=== PATIENT | female | born 1990 | race Caucasian/White ===

== ENCOUNTER 2017-02-09 15:37 | Emergency (ER) | payer SELFPAY ==
[2017-02-09 15:38] VITALS: BMI 21.4
[2017-02-09 16:05] VITALS: BP 125/58; PULSE 74; RESP 18; TEMP 98.1; O2SAT 100
[2017-02-09] MEDS ORDERED: Bacitracin OINT 15GM TOP STA (16:14)
[2017-02-09] MEDS ORDERED: TDAP Vaccine 0.5 mL Syr IM ONE (16:14)
--- NOTE | 2017-02-09 16:42 | ED PDOC ---
HPI: Wound Care - HPI Time Seen by Provider: 02/09/17 16:06 Chief Complaint (Nursing): Bite Chief Complaint (Provider): Animal bite History Per: Patient Exam Limitations: no limitations Additional Complaint(s): Rola Allison, 26 year old female presents to the ED on 02/09/17, after being bitten by 2 dogs on her right and left hips a few hours prior to arrival. The patient states that she was able to get the dog salesman/owner's contact info and was told that the dogs' shots are up to date. 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 Of note, the patient's TDAP is not up to date. Past Medical History Reviewed: Historical Data, Nursing Documentation, Vital Signs Vital Signs: Last Vital Signs Temp 98.1 F 02/09/17 16:01 Pulse 74 02/09/17 16:01 Resp 18 02/09/17 16:01 BP 125/58 L 02/09/17 16:01 Pulse Ox 100 02/09/17 16:01 - Medical History PMH: Asthma - Family History Family History: States: Unknown Family Hx - Home Medications Home Medications: Ambulatory Orders Medication Instructions Recorded Famotidine [Pepcid] 20 mg PO BID #30 tab 07/28/13 Ciprofloxacin/Ciprofloxa HCl 500 mg PO BID #14 tab 08/11/14 [Ciprofloxacin] Naproxen 500 mg PO Q12 #20 tab 09/18/14 Hydrocortisone 1% Cream [Cortizone 1 appl TP BID #1 tube 11/19/14 1% Cream] Ibuprofen 600 mg PO Q6H PRN #15 tab 11/19/14 Ondansetron [Zofran] 4 mg PO Q8H #10 tab 11/14/15 Metronidazole [Flagyl] 1 tab PO BID #14 tab 12/13/15 Fluconazole [Diflucan] 150 mg PO DAILY #1 tablet 12/23/15 Albuterol HFA [Ventolin HFA 90 1 - 2 puff IH Q4 PRN #1 inhaler 09/29/16 mcg/actuation (8 g)] Ibuprofen [Motrin Tab] 600 mg PO Q6 PRN #15 tab 09/29/16 Oseltamivir [Tamiflu] 75 mg PO BID #10 cap 09/29/16 Amoxicillin/Clavulanate [Augmentin 1 tab PO BID #20 tab 02/09/17 500 MG-125 MG] - Allergies Allergies/Adverse Reactions: Allergies Allergy/AdvReac Type Severity Reaction Status Date / Time No Known Allergies Allergy Verified 09/29/16 08:15 Review of Systems Musculoskeletal: Positive for: Other (bitten by 2 dogs on her right/left hips) Physical Exam - Reviewed Nursing Documentation Reviewed: Yes Vital Signs Reviewed: Yes - Physical Exam Appears: Positive for: Well, Non-toxic, No Acute Distress Head Exam: Positive for: ATRAUMATIC, NORMOCEPHALIC Skin: Positive for: Normal Color, Warm, Dry Eye Exam: Positive for: Normal appearance ENT: Positive for: Normal ENT Inspection Neck: Positive for: Normal Cardiovascular/Chest: Positive for: Regular Rate, Rhythm, Chest Non Tender Respiratory: Positive for: Normal Breath Sounds. Negative for: Respiratory Distress Gastrointestinal/Abdominal: Positive for: Normal Exam, Soft. Negative for: Tenderness Back: Positive for: Normal Inspection Extremity: Positive for: Deformity (superficial puncture wounds noted to bilateral hips). Negative for: Other (No active bleeding; no laceration) Neurologic/Psych: Positive for: Alert, Oriented (x3) - ECG O2 Sat by Pulse Oximetry: 100 (RA) Pulse Ox Interpretation: Normal Medical Decision Making Medical Decision Makin:06 Initial Impression: Superficial wounds noted to bilateral hips Initial Plan: * Bacitracin OINT 1 applic TOP STAT * TDAP Vaccine 0.5 ml IM * Reevaluation Scribe Attestation: Documented by Jessenia Bryan, acting as a scribe for Talat Bello PA-C. Provider Scribe Attestation: All medical record entries made by the Scribe were at my direction and personally dictated by me. I have reviewed the chart and agree that the record accurately reflects my personal performance of the history, physical exam, medical decision making, and the department course for this patient. I have also personally directed, reviewed, and agree with the discharge instructions and disposition. Disposition - Clinical Impression Clinical Impression: Dog bite, Blind right eye - Patient ED Disposition Is Patient to be Admitted: No - Disposition [facility]errals[facility] [[facility]] Disposition: Routine/Home Disposition Time: 16:30 Condition: STABLE Additional Instructions: As per patient she has been blind in the right eye since she was 4 years old. Follow up with [facility] in 2 days for further evaluation. Follow up with Dr. Gibson, eye doctor, in 2 days for further evaluation. Prescriptions: Amoxicillin/Clavulanate [Augmentin 500 MG-125 MG] 1 tab PO BID #20 tab Instructions: Animal Bite (ED) Print Language: YI
== END 2017-02-09 16:46 | disposition home or self-care (01) ==
LOC: H.ER 15:37
DX: S71.139A Puncture wound without foreign body, unspecified thigh, initial encounter (principal); W54.0XXA Bitten by dog, initial encounter; Y92.89 Other specified places as the place of occurrence of the external cause; H54.41 Blindness, right eye, normal vision left eye

== ENCOUNTER 2017-08-22 09:17 | Emergency (ER) | payer MEDICAID ==
[2017-08-22 09:21] VITALS: BP 107/69; PULSE 72; RESP 20; TEMP 97.6; O2SAT 99; BMI 23.1
--- NOTE | 2017-08-22 09:57 | ED PDOC ---
HPI: Female Pain Time Seen by Provider: 08/22/17 09:40 Chief Complaint (Nursing): Female Genitourinary Chief Complaint (Provider): vaginal irritation History Per: Patient History/Exam Limitations: no limitations Onset/Duration Of Symptoms: Days (3) Severity: Mild Associated Symptoms: denies: Fever, Chills, Nausea, Vomiting, Back Pain, Chest Pain, Urinary Symptoms Alleviating Factors: None Additional Complaint(s): 26yo female c/o vaginal and perineal irritation after she states she wore new underwear which leaked ink. She denies urinary symptoms, pain with sex or fever. She does note some dark vaginal discharge. Denies history STDs, sexually active with women, last [facility] checkup about a year ago she states. Past Medical History Reviewed: Historical Data, Nursing Documentation, Vital Signs Vital Signs: Last Vital Signs Temp 97.6 F 08/22/17 09:21 Pulse 72 08/22/17 09:21 Resp 20 08/22/17 09:21 BP 107/69 08/22/17 09:21 Pulse Ox 99 08/22/17 09:21 - Medical History PMH: Asthma - Surgical History Surgical History: No Surg Hx - Family History Family History: States: Unknown Family Hx - Home Medications Home Medications: Ambulatory Orders Medication Instructions Recorded Famotidine [Pepcid] 20 mg PO BID #30 tab 07/28/13 Ciprofloxacin/Ciprofloxa HCl 500 mg PO BID #14 tab 08/11/14 [Ciprofloxacin] Naproxen 500 mg PO Q12 #20 tab 09/18/14 Hydrocortisone 1% Cream [Cortizone 1 appl TP BID #1 tube 11/19/14 1% Cream] Ibuprofen 600 mg PO Q6H PRN #15 tab 11/19/14 Ondansetron [Zofran] 4 mg PO Q8H #10 tab 11/14/15 Metronidazole [Flagyl] 1 tab PO BID #14 tab 12/13/15 Fluconazole [Diflucan] 150 mg PO DAILY #1 tablet 12/23/15 Albuterol HFA [Ventolin HFA 90 1 - 2 puff IH Q4 PRN #1 inhaler 09/29/16 mcg/actuation (8 g)] Ibuprofen [Motrin Tab] 600 mg PO Q6 PRN #15 tab 09/29/16 Oseltamivir [Tamiflu] 75 mg PO BID #10 cap 09/29/16 Amoxicillin/Clavulanate [Augmentin 1 tab PO BID #20 tab 02/09/17 500 MG-125 MG] Ciprofloxacin [Cipro] 500 mg PO BID #14 tab 08/22/17 Hydrocortisone 1% Cream [Cortizone 1 appl TP BID #1 tube 08/22/17 1% Cream] - Allergies Allergies/Adverse Reactions: Allergies Allergy/AdvReac Type Severity Reaction Status Date / Time No Known Allergies Allergy Verified 08/22/17 09:29 Review of Systems Constitutional: Negative for: Fever, Chills Gastrointestinal: Negative for: Nausea, Vomiting Genitourinary Female: Positive for: Vaginal Discharge, Rash. Negative for: Dysuria, Frequency, Vaginal Bleeding, Pelvic Pain Physical Exam - Reviewed Nursing Documentation Reviewed: Yes Vital Signs Reviewed: Yes - Physical Exam Appears: Positive for: Well, Non-toxic, No Acute Distress Head Exam: Positive for: ATRAUMATIC, NORMAL INSPECTION, NORMOCEPHALIC Skin: Positive for: Normal Color, Warm, DRY Neck: Positive for: Normal Cardiovascular/Chest: Negative for: Tachycardia Respiratory: Negative for: Respiratory Distress Gastrointestinal/Abdominal: Positive for: Soft. Negative for: Tenderness Pelvic Exam: Positive for: External Exam Normal, Cervicitis (mild). Negative for: Blood, Tender W/Cervical Motion, Tender Adnexa, Tender Uterus, Ulcers Back: Positive for: Normal Inspection Extremity: Positive for: Normal ROM Neurologic/Psych: Positive for: Alert, Oriented. Negative for: Motor/Sensory Deficits - ECG O2 Sat by Pulse Oximetry: 99 Medical Decision Making Medical Decision Making: workup for complaint initiated Preg neg UDip +leuks Pelvic reveals mild cervicitis, otherwise benign appearing Rx cipro for UTI, followup STD panel. Hydrocortisone trial for inguinal area she states itches from underwear. Disposition - Clinical Impression Clinical Impression: Genitourinary Pain, Cervicitis, UTI (urinary tract infection) - Disposition [facility]] Disposition: Routine/Home Disposition Time: 10:30 Condition: STABLE Additional Instructions: Followup for STD testing results. Return to ER for any worse or new symptoms. SEE [facility]ENTATION SPECIALIST DOCTOR FOR FULL TESTING AND PAP SMEAR. Prescriptions: Ciprofloxacin [Cipro] 500 mg PO BID #14 tab Hydrocortisone 1% Cream [Cortizone 1% Cream] 1 appl TP BID #1 tube Instructions: Cervicitis (ED), Urinary Tract Infection in Women (ED)
== END 2017-08-22 10:36 | disposition home or self-care (01) ==
LOC: H.ER 09:17
DX: N72 Inflammatory disease of cervix uteri (principal); N39.0 Urinary tract infection, site not specified; J45.909 Unspecified asthma, uncomplicated

== ENCOUNTER 2018-01-10 13:26 | Emergency (ER) | payer MEDICAID ==
[2018-01-10 13:27] VITALS: BMI 23.1
[2018-01-10 13:46] VITALS: BP 110/76; PULSE 76; RESP 16; TEMP 98; O2SAT 97
--- NOTE | 2018-01-10 14:06 | ED PDOC ---
History of Present Illness History of Present Illness: Rola is a 27 y/o female with no past medical history who presents to the ED complaining of body aches, throat pain, congestion and weakness since yesterday morning. Patient denies sick contacts. PMD: None HPI: Influenza Time Seen by Provider: 01/10/18 14:00 Chief Complaint: Flu-like Symptoms Chief Complaint (Provider): Flu-like Symptoms History Per: Patient Exam Limitations: no limitations Onset/Duration Of Symptoms: Days (x 2) Symptoms include: fever, bodyaches, sore throat, nasal congestion Past Medical History Reviewed: Historical Data, Nursing Documentation, Vital Signs Vital Signs: Last Vital Signs Temp 98.0 F 01/10/18 13:43 Pulse 76 01/10/18 13:43 Resp 16 01/10/18 13:43 BP 110/76 01/10/18 13:43 Pulse Ox 97 01/10/18 13:43 - Medical History PMH: Asthma - Family History Family History: States: Unknown Family Hx - Social History Current smoker - smoking cessation education provided: Yes - Home Medications Home Medications: Ambulatory Orders Medication Instructions Recorded Famotidine [Pepcid] 20 mg PO BID #30 tab 07/28/13 Ciprofloxacin/Ciprofloxa HCl 500 mg PO BID #14 tab 08/11/14 [Ciprofloxacin] Naproxen 500 mg PO Q12 #20 tab 09/18/14 Hydrocortisone 1% Cream [Cortizone 1 appl TP BID #1 tube 11/19/14 1% Cream] Ibuprofen 600 mg PO Q6H PRN #15 tab 11/19/14 Ondansetron [Zofran] 4 mg PO Q8H #10 tab 11/14/15 Metronidazole [Flagyl] 1 tab PO BID #14 tab 12/13/15 Fluconazole [Diflucan] 150 mg PO DAILY #1 tablet 12/23/15 Albuterol HFA [Ventolin HFA 90 1 - 2 puff IH Q4 PRN #1 inhaler 09/29/16 mcg/actuation (8 g)] Ibuprofen [Motrin Tab] 600 mg PO Q6 PRN #15 tab 09/29/16 Oseltamivir [Tamiflu] 75 mg PO BID #10 cap 09/29/16 Amoxicillin/Clavulanate [Augmentin 1 tab PO BID #20 tab 02/09/17 500 MG-125 MG] Ciprofloxacin [Cipro] 500 mg PO BID #14 tab 08/22/17 Hydrocortisone 1% Cream [Cortizone 1 appl TP BID #1 tube 08/22/17 1% Cream] Ibuprofen [Motrin] 600 mg PO Q8 PRN #21 tab 01/10/18 Oseltamivir [Tamiflu] 75 mg PO BID #10 cap 01/10/18 Pseudoephedrine [Sudafed Tab] 60 mg PO Q6 PRN #24 tab 01/10/18 - Allergies Allergies/Adverse Reactions: Allergies Allergy/AdvReac Type Severity Reaction Status Date / Time No Known Allergies Allergy Verified 01/10/18 13:42 Review of Systems ROS Statement: Except As Marked, All Systems Reviewed And Found Negative Constitutional: Positive for: Weakness, Malaise. Negative for: Fever ENT: Positive for: Nose Congestion, Throat Pain Physical Exam - Reviewed Nursing Documentation Reviewed: Yes Vital Signs Reviewed: Yes - Physical Exam Appears: Positive for: Well, Non-toxic, No Acute Distress Skin: Positive for: Normal Color, Warm, Dry ENT: Positive for: Nasal Congestion, Pharyngeal Erythema Respiratory: Positive for: Normal Breath Sounds. Negative for: Wheezing, Respiratory Distress Neurologic/Psych: Positive for: Alert, Oriented Medical Decision Making Medical Decision Making: Time: 14:05 Initial Impression: Flu-like symptoms Initial Plan: --Flu Swab --Rapid Strep Scribe Attestation: Documented by Rogelio Falcon, acting as a scribe for Reji Cooper PA-C Provider Scribe Attestation: All medical record entries made by the Scribe were at my direction and personally dictated by me. I have reviewed the chart and agree that the record accurately reflects my personal performance of the history, physical exam, medical decision making, and the department course for this patient. I have also personally directed, reviewed, and agree with the discharge instructions and disposition. - ECG O2 Sat by Pulse Oximetry: 97 Disposition - Clinical Impression Clinical Impression: Influenza - Patient ED Disposition Is Patient to be Admitted: No - Disposition Referrals: [facility] [Outside] Disposition: Routine/Home Disposition Time: 14:54 Condition: FAIR Prescriptions: Ibuprofen [Motrin] 600 mg PO Q8 PRN #21 tab PRN Reason: Pain, Moderate (4-7) Oseltamivir [Tamiflu] 75 mg PO BID #10 cap Pseudoephedrine [Sudafed Tab] 60 mg PO Q6 PRN #24 tab PRN Reason: Nasal Congestion Instructions: Flu, Adult (DC) Forms: [employer] (Slovak), [facility] ED School/Work Excuse
== END 2018-01-10 15:00 | disposition home or self-care (01) ==
LOC: H.ER 13:26
DX: J11.1 Influenza due to unidentified influenza virus with other respiratory manifestations (principal); J45.909 Unspecified asthma, uncomplicated; F17.200 Nicotine dependence, unspecified, uncomplicated

== ENCOUNTER 2018-01-16 10:56 | Emergency (ER) | payer SELFPAY ==
[2018-01-16 10:56] VITALS: BMI 23.1
[2018-01-16 11:15] VITALS: BP 100/74; PULSE 79; RESP 18; TEMP 97.8; O2SAT 100
--- NOTE | 2018-01-16 12:03 | ED PDOC ---
HPI: Abdomen Time Seen by Provider: 01/16/18 12:02 Chief Complaint (Nursing): GI Problem Chief Complaint (Provider): Vomiting History Per: Patient History/Exam Limitations: no limitations Onset/Duration Of Symptoms: Hrs (this morning) Current Symptoms Are (Timing): Still Present Location Of Pain/Discomfort: Epigastric Associated Symptoms: Nausea, Vomiting, Diarrhea Additional Complaint(s): Rola Allison is a 27 year old female with a past medical history of back pain and asthma, who is presenting to the ER with complaints of nausea and vomiting, with associated abdominal pain onset this morning prior to arrival. Patient states that she began feeling nauseous after she ate this morning and reports episodes of diarrhea; her last bowel movement was this morning. Patient admits to having the flu a few days ago and denies any fevers or headaches. PMD: none provided Past Medical History Reviewed: Historical Data, Nursing Documentation, Vital Signs Vital Signs: Last Vital Signs Temp 97.8 F 01/16/18 11:12 Pulse 79 01/16/18 11:12 Resp 18 01/16/18 11:12 BP 100/74 01/16/18 11:12 Pulse Ox 100 01/16/18 16:06 - Medical History PMH: Asthma - Family History Family History: States: Unknown Family Hx - Social History Current smoker - smoking cessation education provided: Yes (3 cigarettes a day) Alcohol: Social - Home Medications Home Medications: Ambulatory Orders Medication Instructions Recorded Famotidine [Pepcid] 20 mg PO BID #30 tab 07/28/13 Ciprofloxacin/Ciprofloxa HCl 500 mg PO BID #14 tab 08/11/14 [Ciprofloxacin] Naproxen 500 mg PO Q12 #20 tab 09/18/14 Hydrocortisone 1% Cream [Cortizone 1 appl TP BID #1 tube 11/19/14 1% Cream] Ibuprofen 600 mg PO Q6H PRN #15 tab 11/19/14 Ondansetron [Zofran] 4 mg PO Q8H #10 tab 11/14/15 Metronidazole [Flagyl] 1 tab PO BID #14 tab 12/13/15 Fluconazole [Diflucan] 150 mg PO DAILY #1 tablet 12/23/15 Albuterol HFA [Ventolin HFA 90 1 - 2 puff IH Q4 PRN #1 inhaler 09/29/16 mcg/actuation (8 g)] Ibuprofen [Motrin Tab] 600 mg PO Q6 PRN #15 tab 09/29/16 Oseltamivir [Tamiflu] 75 mg PO BID #10 cap 09/29/16 Amoxicillin/Clavulanate [Augmentin 1 tab PO BID #20 tab 02/09/17 500 MG-125 MG] Ciprofloxacin [Cipro] 500 mg PO BID #14 tab 08/22/17 Hydrocortisone 1% Cream [Cortizone 1 appl TP BID #1 tube 08/22/17 1% Cream] Ibuprofen [Motrin] 600 mg PO Q8 PRN #21 tab 01/10/18 Oseltamivir [Tamiflu] 75 mg PO BID #10 cap 01/10/18 Pseudoephedrine [Sudafed Tab] 60 mg PO Q6 PRN #24 tab 01/10/18 - Allergies Allergies/Adverse Reactions: Allergies Allergy/AdvReac Type Severity Reaction Status Date / Time No Known Allergies Allergy Verified 01/16/18 11:12 Review of Systems ROS Statement: Except As Marked, All Systems Reviewed And Found Negative Constitutional: Negative for: Fever Gastrointestinal: Positive for: Nausea, Vomiting, Abdominal Pain, Diarrhea Neurological: Negative for: Headache Physical Exam - Reviewed Nursing Documentation Reviewed: Yes Vital Signs Reviewed: Yes - Physical Exam Appears: Positive for: Non-toxic, No Acute Distress Head Exam: Positive for: ATRAUMATIC, NORMAL INSPECTION, NORMOCEPHALIC Skin: Positive for: Normal Color, Warm, DRY Eye Exam: Positive for: Normal appearance ENT: Positive for: Normal ENT Inspection Neck: Positive for: Normal, Painless ROM Cardiovascular/Chest: Positive for: Regular Rate, Rhythm. Negative for: Gallop , Murmur Respiratory: Positive for: Normal Breath Sounds. Negative for: Respiratory Distress Pulses-Carotid (L): 2+ Pulses-Carotid (R): 2+ Pulses-Radial (L): 2+ Pulses-Radial (R): 2+ Gastrointestinal/Abdominal: Positive for: Bowel Sounds (active), Tenderness ( epigastric, no quadrant tenderness). Negative for: Other (Toney's sign) Extremity: Positive for: Normal ROM. Negative for: Deformity, Swelling Neurologic/Psych: Positive for: Alert, Oriented. Negative for: Motor/Sensory Deficits - Laboratory Results Result Diagrams: 01/16/18 13:30 01/16/18 13:30 - ECG O2 Sat by Pulse Oximetry: 100 (RA) Pulse Ox Interpretation: Normal Medical Decision Making Medical Decision Making: Time: 12:31 Plan: --CT Abd/Pelvis --Amylase --CMP --Drug Screen --Lipase --ED Urine --CBC --Zofran Inj 4 mg IVP --Urinalysis Pt informed staff while awaitig a contrast CT to evaluate her for acute abdomen that "she had things to do" and no longer wanted to stay. The consequences/AMA were explained to the patient and she further informed that she would "take the risk" becuase she feels so much better now. Pt executed an AMA form Scribe Attestation: Documented by Ronda Felix, acting as a scribe for Matthew Meza PA-C Provider Scribe Attestation: All medical record entries made by the Scribe were at my direction and personally dictated by me. I have reviewed the chart and agree that the record accurately reflects my personal performance of the history, physical exam, medical decision making, and the department course for this patient. I have also personally directed, reviewed, and agree with the discharge instructions and disposition. Disposition - Clinical Impression Clinical Impression: Abdominal pain - Patient ED Disposition Is Patient to be Admitted: No Counseled Patient/Family Regarding: Studies Performed - Disposition Disposition: Against Medical Advice Disposition Time: 15:50 Condition: FAIR Forms: [employer] (Romanian)
[2018-01-16 13:39] LABS: BASO % 0.5 % (0.0-2.0); EOS % 0.4 % (0.0-4.0); LYMPH # 0.9 K/uL (1.0-4.3); MEAN CELL VOLUME 81.2 fl (81.0-99.0); MEAN CORPUSCULAR HEMOGLOBIN 26.4 pg (27.0-31.0); MEAN CORPUSCULAR HGB CONC 32.6 g/dL (33.0-37.0); MEAN PLATELET VOLUME 9.2 fl (7.2-11.7); MONO # 0.1 K/uL (0.0-0.8); MONO % 2.8 % (0.0-10.0); NEUT # 4.1 K/uL (1.8-7.0); NEUT % 79.3 % (50.0-75.0); RBC 5.28 Mil/uL (3.80-5.20); WHITE BLOOD COUNT 5.2 K/uL (4.8-10.8)
[2018-01-16] MEDS ORDERED: Iohexol 240 (50 ml) ONE (13:39)
[2018-01-16 13:50] LABS: ALB/GLOB RATIO 1.3 (1.0-2.1); ALBUMIN 4.5 g/dL (3.5-5.0); ALT/SGPT 32 U/L (9-52); AMYLASE 95 U/L (30-110); AST/SGOT 25 U/L (14-36); BLOOD UREA NITROGEN 11 mg/dl (7-17); CALCIUM 9.7 mg/dL (8.4-10.2); GFR AFRICAN-AMERICAN > 60; GFR NON-AFRICAN AMERICAN > 60; LIPASE 113 U/L (23-300)
[2018-01-16 14:37] LABS: SQUAMOUS EPITHIAL 8 /hpf (0-5); URINE BACTERIA RARE (<OCC); URINE BILIRUBIN NEGATIVE (NEGATIVE); URINE BLOOD NEGATIVE (NEGATIVE); URINE CLARITY CLOUDY (Clear); URINE COLOR YELLOW (YELLOW); URINE GLUCOSE (UA) NEG (Normal); URINE LEUKOCYTE ESTERASE NEG Leu/uL (Negative); URINE PROTEIN 30 mg/dL (NEGATIVE); URINE UROBILINOGEN 0.2-1.0 mg/dL (0.2-1.0)
[2018-01-16 14:47] LABS: BARBITURATES, UR NEGATIVE (NEGATIVE); BENZODIAZEPINES, UR NEGATIVE (NEGATIVE); OPIATES, UR NEGATIVE (NEGATIVE); PHENCYCLIDINE, UR NEGATIVE (NEGATIVE)
== END 2018-01-16 16:11 | disposition left against medical advice (07) ==
LOC: H.ER 10:56
DX: R10.9 Unspecified abdominal pain (principal); F17.210 Nicotine dependence, cigarettes, uncomplicated; J45.909 Unspecified asthma, uncomplicated
CPT/HCPCS: 80053; 80324; 80345; 80346; 80349; 80353; 80358; 80361; 81003; 81025; 82150; 83690; 83992; 85025; 96374; 99283; J2405

== ENCOUNTER 2018-02-17 11:38 | Emergency (ER) | payer MEDICAID, SELFPAY ==
[2018-02-17 11:42] VITALS: BMI 24.9
[2018-02-17 11:44] VITALS: BP 112/76; PULSE 76; RESP 16; TEMP 97.5; O2SAT 96
[2018-02-17] MEDS ORDERED: Sodium Chloride 0.9% 1,000 ML IV STA (12:05)
--- NOTE | 2018-02-17 12:08 | ED PDOC ---
HPI: Abdomen Time Seen by Provider: 02/17/18 12:00 Chief Complaint (Nursing): GI Problem History Per: Patient Onset/Duration Of Symptoms: Days (2) Current Symptoms Are (Timing): Still Present Severity: Mild Pain Scale Rating Of: 2 Location Of Pain/Discomfort: Epigastric, LLQ Quality Of Discomfort: Unable To Describe Associated Symptoms: Nausea, Vomiting, Diarrhea Exacerbating Factors: None Alleviating Factors: None Additional Complaint(s): Epigastric and LLQ abd pain assoc with NVD since last night. No fever or blood in stools Past Medical History Vital Signs: Last Vital Signs Temp 97.5 F L 02/17/18 11:43 Pulse 76 02/17/18 11:43 Resp 16 02/17/18 11:43 BP 112/76 02/17/18 11:43 Pulse Ox 96 02/17/18 13:14 - Medical History PMH: Asthma - Family History Family History: States: Unknown Family Hx - Home Medications Home Medications: Ambulatory Orders Medication Instructions Recorded Famotidine [Pepcid] 20 mg PO BID #30 tab 07/28/13 Ciprofloxacin/Ciprofloxa HCl 500 mg PO BID #14 tab 08/11/14 [Ciprofloxacin] Naproxen 500 mg PO Q12 #20 tab 09/18/14 Hydrocortisone 1% Cream [Cortizone 1 appl TP BID #1 tube 11/19/14 1% Cream] Ibuprofen 600 mg PO Q6H PRN #15 tab 11/19/14 Ondansetron [Zofran] 4 mg PO Q8H #10 tab 11/14/15 Metronidazole [Flagyl] 1 tab PO BID #14 tab 12/13/15 Fluconazole [Diflucan] 150 mg PO DAILY #1 tablet 12/23/15 Albuterol HFA [Ventolin HFA 90 1 - 2 puff IH Q4 PRN #1 inhaler 09/29/16 mcg/actuation (8 g)] Ibuprofen [Motrin Tab] 600 mg PO Q6 PRN #15 tab 09/29/16 Oseltamivir [Tamiflu] 75 mg PO BID #10 cap 09/29/16 Amoxicillin/Clavulanate [Augmentin 1 tab PO BID #20 tab 02/09/17 500 MG-125 MG] Ciprofloxacin [Cipro] 500 mg PO BID #14 tab 08/22/17 Hydrocortisone 1% Cream [Cortizone 1 appl TP BID #1 tube 08/22/17 1% Cream] Ibuprofen [Motrin] 600 mg PO Q8 PRN #21 tab 01/10/18 Oseltamivir [Tamiflu] 75 mg PO BID #10 cap 01/10/18 Pseudoephedrine [Sudafed Tab] 60 mg PO Q6 PRN #24 tab 01/10/18 Famotidine [Pepcid] 20 mg PO Q12 #20 tab 02/17/18 Ondansetron [Zofran] 4 mg PO Q8H #10 tab 02/17/18 - Allergies Allergies/Adverse Reactions: Allergies Allergy/AdvReac Type Severity Reaction Status Date / Time No Known Allergies Allergy Verified 01/16/18 11:12 Review of Systems ROS Statement: Except As Marked, All Systems Reviewed And Found Negative Gastrointestinal: Positive for: Nausea, Vomiting, Abdominal Pain, Diarrhea Physical Exam - Reviewed Nursing Documentation Reviewed: Yes Vital Signs Reviewed: Yes - Physical Exam Appears: Positive for: Non-toxic, No Acute Distress Head Exam: Positive for: ATRAUMATIC, NORMAL INSPECTION, NORMOCEPHALIC Skin: Positive for: Normal Color, Warm, DRY Eye Exam: Positive for: EOMI, Normal appearance, PERRL ENT: Positive for: Normal ENT Inspection Neck: Positive for: Normal, Painless ROM Cardiovascular/Chest: Positive for: Regular Rate, Rhythm Respiratory: Positive for: CNT, Normal Breath Sounds Gastrointestinal/Abdominal: Positive for: Soft, Tenderness (epigastric and LLQ abd pain) Back: Positive for: Normal Inspection Extremity: Positive for: Normal ROM Neurologic/Psych: Positive for: Alert, Oriented - Laboratory Results Result Diagrams: 02/17/18 12:20 02/17/18 12:20 - ECG O2 Sat by Pulse Oximetry: 96 Medical Decision Making Medical Decision Makin; APOORVA KAUR Time: 1205 Plan: -- CT Abd & Pelvis IV Contrast -- CMP -- ED Urine -- ED Urine Dipstick -- CBC with differentials -- Sodium Chloride 200 mls/hr Scribe Attestation: Documented by Aya Ghazy, acting as a scribe for Dr. Crow Sanchez MD. Pt does not wish to wait for CT results Provider Scribe Attestation: All medical record entries made by the Scribe were at my direction and personally dictated by me. I have reviewed the chart and agree that the record accurately reflects my personal performance of the history, physical exam, medical decision making, and the department course for this patient. I have also personally directed, reviewed, and agree with the discharge instructions and disposition. Disposition - Clinical Impression Clinical Impression: Gastroenteritis - Patient ED Disposition Is Patient to be Admitted: No Counseled Patient/Family Regarding: Studies Performed, Diagnosis, Need For Followup, Rx Given - Disposition Referrals: [facility] [Outside] Disposition: Routine/Home Disposition Time: 14:42 Condition: FAIR Prescriptions: Famotidine [Pepcid] 20 mg PO Q12 #20 tab Ondansetron [Zofran] 4 mg PO Q8H #10 tab Instructions: Gastritis (DC) Forms: [employer] (Puerto Rican)
[2018-02-17 12:38] LABS: BASO # 0.1 K/uL (0.0-0.2); BASO % 0.8 % (0.0-2.0); EOS % 0.4 % (0.0-4.0); HEMOGLOBIN 13.9 g/dL (12.0-16.0); LYMPH # 1.1 K/uL (1.0-4.3); MEAN CELL VOLUME 79.9 fl (81.0-99.0); MEAN CORPUSCULAR HEMOGLOBIN 26.2 pg (27.0-31.0); MEAN CORPUSCULAR HGB CONC 32.7 g/dL (33.0-37.0); MEAN PLATELET VOLUME 9.3 fl (7.2-11.7); MONO # 0.3 K/uL (0.0-0.8); MONO % 4.2 % (0.0-10.0); NEUT # 6.1 K/uL (1.8-7.0); NEUT % 80.6 % (50.0-75.0); NRBC % 0.2 % (0.0-0.0); RBC 5.3 Mil/uL (3.80-5.20); RED CELL DISTRIBUTION WIDTH 15.2 % (11.5-14.5); WHITE BLOOD COUNT 7.6 K/uL (4.8-10.8)
[2018-02-17 12:50] LABS: ALB/GLOB RATIO 1.3 (1.0-2.1); ALBUMIN 4.5 g/dL (3.5-5.0); ALT/SGPT 34 U/L (9-52); AST/SGOT 26 U/L (14-36); BLOOD UREA NITROGEN 13 mg/dl (7-17); CALCIUM 9.6 mg/dL (8.4-10.2); GFR AFRICAN-AMERICAN > 60; GFR NON-AFRICAN AMERICAN > 60
[2018-02-17] MEDS ORDERED: Iohexol 300 100 ML IJ ONE (13:39)
[2018-02-17] MEDS ORDERED: Sodium Chloride 0.9% 100 ML ONE (13:40)
--- NOTE | 2018-02-17 15:22 | CT ---
PROCEDURE: CT Abdomen and Pelvis with contrast HISTORY: abd pain COMPARISON: None. TECHNIQUE: Contrast dose: Radiation dose: Total exam DLP = mGy-cm. This CT exam was performed using one or more of the following dose reduction techniques: Automated exposure control, adjustment of the mA and/or kV according to patient size, and/or use of iterative reconstruction technique. FINDINGS: LOWER THORAX: Unremarkable. LIVER: Unremarkable. No gross lesion or ductal dilatation. GALLBLADDER AND BILE DUCTS: Unremarkable. PANCREAS: Unremarkable. No gross lesion or ductal dilatation. SPLEEN: Unremarkable. ADRENALS: Unremarkable. No mass. KIDNEYS AND URETERS: Unremarkable. No hydronephrosis. No solid mass. VASCULATURE: Unremarkable. No aortic aneurysm. BOWEL: Unremarkable. No obstruction. No gross mural thickening. APPENDIX: Normal appendix. PERITONEUM: Unremarkable. No free fluid. No free air. LYMPH NODES: Unremarkable. No enlarged lymph nodes. BLADDER: Unremarkable. REPRODUCTIVE: Unremarkable. BONES: No acute fracture. OTHER FINDINGS: None. IMPRESSION: Unremarkable contrast enhanced CT of the abdomen and pelvis.
== END 2018-02-17 14:43 | disposition home or self-care (01) ==
LOC: H.ER 11:38
DX: K52.9 Noninfective gastroenteritis and colitis, unspecified (principal)
CPT/HCPCS: 74177; 80053; 81025; 85025; 96374; 99285; J7040; Q9967

== ENCOUNTER 2019-03-02 21:35 | Emergency (ER) | payer MEDICAID ==
[2019-03-02 21:35] VITALS: BMI 24.9
[2019-03-02 21:43] VITALS: RESP 16
[2019-03-02 22:41] LABS: BASO % 0.8 % (0.0-2.0); EOS # 0.2 K/uL (0.0-0.7); EOS % 4.5 % (0.0-4.0); HEMOGLOBIN 12.3 g/dL (12.0-16.0); LYMPH # 1.5 K/uL (1.0-4.3); LYMPH % 31.2 % (20.0-40.0); MEAN CELL VOLUME 78.8 fl (81.0-99.0); MEAN CORPUSCULAR HEMOGLOBIN 25.4 pg (27.0-31.0); MEAN CORPUSCULAR HGB CONC 32.3 g/dL (33.0-37.0); MEAN PLATELET VOLUME 9.4 fl (7.2-11.7); MONO # 0.3 K/uL (0.0-0.8); MONO % 5.7 % (0.0-10.0); NEUT # 2.7 K/uL (1.8-7.0); NEUT % 57.8 % (50.0-75.0); NRBC % 0.1 % (0.0-0.0); RBC 4.84 Mil/uL (3.80-5.20); RED CELL DISTRIBUTION WIDTH 15.9 % (11.5-14.5); WHITE BLOOD COUNT 4.8 K/uL (4.8-10.8)
[2019-03-02 22:56] LABS: ALB/GLOB RATIO 1.4 (1.0-2.1); ALBUMIN 4.2 g/dL (3.5-5.0); ALT/SGPT 26 U/L (9-52); AST/SGOT 25 U/L (14-36); BLOOD UREA NITROGEN 14 mg/dl (7-17); CALCIUM 8.9 mg/dL (8.4-10.2); GFR NON-AFRICAN AMERICAN > 60
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
[2019-03-03] MEDS ORDERED: Sodium Chloride 0.9% 1,000 ML IV STA (00:54)
[2019-03-03 01:22] VITALS: BP 109/68; PULSE 86; TEMP 98.2
[2019-03-03 01:32] VITALS: O2SAT 97
--- NOTE | 2019-03-03 11:25 | CARD ---
APPROVED REPORT Date of service: 03/02/2019 EKG Measurement Heart [id number] <Conclusion> Normal sinus rhythm Normal ECG
--- NOTE | 2019-03-03 12:29 | CT ---
Date of service: 03/02/2019 PROCEDURE: CT HEAD WITHOUT CONTRAST. HISTORY: worst headache of life COMPARISON: None available. TECHNIQUE: Axial computed tomography images were obtained through the head/brain without intravenous contrast. Radiation dose: Total exam DLP = 797.55 mGy-cm. This CT exam was performed using one or more of the following dose reduction techniques: Automated exposure control, adjustment of the mA and/or kV according to patient size, and/or use of iterative reconstruction technique. FINDINGS: HEMORRHAGE: No intracranial hemorrhage. BRAIN: Normal bravo-white matter differentiation and density are appreciated throughout the cerebrum and cerebellum with the brainstem appearing unremarkable as well. There is no mass effect. There is no suspicious extra-axial fluid collection and the midline brain anatomy appears diffusely unremarkable. VENTRICLES: Unremarkable. No hydrocephalus. CALVARIUM: Unremarkable. PARANASAL SINUSES: Limited left sphenoid sinus disease. MASTOID AIR CELLS: Unremarkable as visualized. No inflammatory changes. OTHER FINDINGS: None. IMPRESSION: Normal CT of the Head. Incidental limited left sphenoid sinus disease noted. Concordant preliminary report from [facility], 03/02/2019, 11:40 p.m..
== END 2019-03-03 01:21 | disposition home or self-care (01) ==
LOC: H.ER 21:35
DX: J32.9 Chronic sinusitis, unspecified (principal)
CPT/HCPCS: 70450; 80053; 81025; 85025; 93005; 96374; 99285; J1885; J7030